=== PATIENT | female | born 1965 | race Caucasian/White ===

== ENCOUNTER 2024-01-07 16:15 | Emergency (ER) | payer BC ==
[2024-01-07 16:30] VITALS: BP 121/59; PULSE 56
== END 2024-01-07 18:03 | disposition home or self-care (01) ==
LOC: VM.ED 16:15
DX: S60.211A Contusion of right wrist, initial encounter (principal); Z88.2 Allergy status to sulfonamides; Z88.7 Allergy status to serum and vaccine; Z79.899 Other long term (current) drug therapy; W20.8XXA Other cause of strike by thrown, projected or falling object, initial encounter
CPT/HCPCS: 73110-RT; 99283